=== PATIENT | female | born 1980 | race African-American/Black ===

== ENCOUNTER 2018-02-07 12:21 | Emergency (ER) | payer OTHER ==
[~2018-02-07] VITALS: Ht 172.7 cm; Wt 81.6 kg
[~2018-02-07 12:21] MED LIST: KEFLEX500 M1 PO; PYRIDIUM200 M1 PO
[2018-02-07 13:13] LABS: ABSOLUTE BASOPHIL COUNT 0 /CUMM (0.0-0.2); ABSOLUTE EOSINOPHIL COUNT 0.2 /CUMM (0.0-0.7); ABSOLUTE GRANULOCYTE CT 1.2 /CUMM (1.4-6.5); ABSOLUTE LYMPH COUNT 2.4 /CUMM (1.2-3.4); ABSOLUTE MONOCYTE COUNT 0.4 /CUMM (0.10-0.60); BASOPHIL % 0 % (0.0-2.0); EOSINOPHIL % 4.4 % (0-5); GRANULOCYTE % 28.9 % (42.2-75.2); HEMATOCRIT 34.3 % (37-47); MEAN CORPUSCULAR HGB 22.8 PG (27.0-31.0); MEAN CORPUSCULAR HGB CONC 32.1 G/DL (33.0-37.0); MEAN CORPUSCULAR VOLUME 70.8 FL (81.0-99.0); MEAN PLATELET VOLUME 9.7 FL (7.4-10.4); PLATELET COUNT 204 /CUMM (130-400); RBC DISTRIBUTION WIDTH 20.2 % (11.5-14.5); RED BLOOD CELL CT 4.84 /CUMM (4.20-5.40); WHITE BLOOD CELL COUNT 4.2 /CUMM (4.8-10.8)
--- NOTE | 2018-02-07 14:40 | ED CARDIAC/CP/PALPITATIONS ---
History of Present Illness General Chief Complaint: Lower Extremity Problems Stated Complaint: LT LEG NUMB Source: patient Exam Limitations: no limitations Vital Signs & Intake/Output Vital Signs & Intake/Output Vital Signs Date Time Temp Pulse Resp B/P B/P Pulse O2 O2 Flow FiO2 Mean Ox Delivery Rate 02/07 1842 97.5 55 18 128/59 100 02/07 1534 98 Room Air Room Air 02/07 1232 97.4 73 20 142/75 97 Room Air Allergies Coded Allergies: No Known Allergies (05/03/16) Reconcile Medications No Known Home Medications Triage Note: PT TO ED C/O LEFT LEG NUMBNESS X 30 MINS. STATES IT COMES AND GOES. ALSO C/O CHEST HEAVINESS THAT COMES AND GOES. CURRENTLY DENIES LEG NUMBNESS OR CHEST HEAVINESS. Triage Nurses Notes Reviewed? yes Onset: Gradual Quality/Severity: moderate Location: substernal Radiation: no radiation : No Patient currently breastfeeds: No HPI: Patient is a 38-year-old female with an unremarkable past medical history presents emergency room stating that while at rest in a supine position lying down she stood up and had acute onset of left buttock to behind the knee paresthesia within patient suddenly had chest heaviness that resolved prior to arrival patient states that all symptoms lasted roughly 5 seconds and has completely resolved. Denies any back pain denies any nausea vomiting or hemoptysis leg swelling history DVT or PE Patient is in every day smoker. Denies any recent travel night sweats, or unintentional weight loss (Drew Cordero) Past History Travel History Traveled to [place] past 21 day No Medical History Any Pertinent Medical History? none Neurological: NONE EENT: NONE Cardiovascular: NONE Respiratory: NONE Gastrointestinal: NONE Hepatic: NONE Renal: NONE Musculoskeletal: NONE Psychiatric: NONE Endocrine: NONE Blood Disorders: NONE Cancer(s): NONE Other Medical Hx: UTI Surgical History Surgical History: non-contributory Psychosocial History What is your primary language Jamaican Tobacco Use: Current Not Daily Daily Tobacco Use Amount/Type: =< 4 Cigarettes daily ETOH Use: denies use Illicit Drug Use: denies illicit drug use Family History Hx Contributory? No (Drew Cordero) Review of Systems Review of Systems Constitutional: Reports: no symptoms. EENTM: Reports: no symptoms. Respiratory: Reports: see HPI. Cardiovascular: Reports: see HPI. GI: Reports: no symptoms. Genitourinary: Reports: no symptoms. Musculoskeletal: Reports: no symptoms. Skin: Reports: no symptoms. Neurological/Psychological: Reports: see HPI. Hematologic/Endocrine: Reports: no symptoms. Immunologic/Allergic: Reports: no symptoms. All Other Systems: Reviewed and Negative (Drew Cordero) Physical Exam Physical Exam General Appearance: no apparent distress, alert, comfortable Head: atraumatic Eyes: Bilateral: normal appearance, PERRL. Ears, Nose, Throat: hearing grossly normal Respiratory: normal breath sounds, chest non-tender, no respiratory distress Cardiovascular: regular rate/rhythm Gastrointestinal: normal bowel sounds, soft, non-tender Back: normal inspection, normal range of motion, no vertebral tenderness Extremities: normal inspection, normal capillary refill, normal range of motion, no edema Neurologic/Psych: no motor/sensory deficits Skin: intact, normal color Comments: Bilateral lower extremity myotomes dermatomes DTRs intact no leg swelling Positive straight leg raise on the left AT 70 Core Measures ACS in differential dx? No CVA/TIA Diagnosis No Sepsis Present: No Sepsis Focused Exam Completed? No (Drew Cordero) Progress Differential Diagnosis: AMI, aortic dissection, atrial fibrillation, cholecystitis, CHF/pulm edema, costochondritis, hyperkalemia, hypovolemia, hyperthyroid, hyperventilation, intracranial hemorrhage, musculoskeletal pain, myocarditis, pancreatitis, pericarditis, pneumonia, pneumothorax, PSVT, pulmonary embolism, PUD/GERD, PVCs/PACs, respiratory failure, rib fracture, sepsis, unstable angina, V-fib/V-Tach, WPW syndrome Plan of Care: Orders Procedure Date/time Status Add-on Test (ER Only) 02/07 1858 Active THYROID STIMULATING HORMONE 02/07 1302 Complete THYROXINE 02/07 1302 Complete URINALYSIS 02/07 1235 Complete TROPONIN LEVEL 02/07 1235 Complete MAGNESIUM 02/07 1235 Complete LIPASE 02/07 1235 Complete HUMAN BETA HCG SCREEN 02/07 1235 Complete COMPREHENSIVE METABOLIC PANEL 02/07 1235 Complete CBC WITHOUT DIFFERENTIAL 02/07 1235 Complete EKG 02/07 1235 Active Laboratory Tests 02/07/18 1455: Urinalysis LIGHT H, Urine Color STRAW, Urine Clarity HAZY H, Urine pH 6.0, Ur Specific [place] <= 1.005, Urine Protein NEG, Urine Ketones NEG, Urine Nitrite NEG, Urine Bilirubin NEG, Urine Urobilinogen 0.2, Ur Leukocyte Esterase MOD H, Ur Microscopic SEDIMENT EXAMINED, Urine RBC 3-5, Urine WBC 5-10 H, Ur Epithelial Cells MANY H, Urine Bacteria FEW H, Urine Mucus RARE, Urine Hemoglobin NEG, Urine Glucose NEG 02/07/18 1302: Anion Gap 6, Estimated GFR > 60, BUN/Creatinine Ratio 10.0, Glucose 110 H, Calcium 9.3, Magnesium 1.8, Total Bilirubin 0.4, AST 29, ALT 40, Alkaline Phosphatase 40, Troponin I < 0.01, Total Protein 6.7, Albumin 3.7, Globulin 3.0, Albumin/Globulin Ratio 1.2, Lipase 216, TSH 0.718, Thyroxine (T4) 9.3, Total Beta HCG NEGATIVE, CBC w Diff MAN DIFF ORDERED, RBC 4.84, MCV 70.8 L, MCH 22.8 L, MCHC 32.1 L, RDW 20.2 H, MPV 9.7, Gran % 28.9 L, Lymphocytes % 58.3 H, Monocytes % 8.4, Eosinophils % 4.4, Basophils % 0, Absolute Granulocytes 1.2 L, Absolute Lymphocytes 2.4, Absolute Monocytes 0.4, Absolute Eosinophils 0.2, Absolute Basophils 0, Platelet Estimate ADEQUATE, Hypochromic-Microcytic 2+, Poikilocytosis 2+, Anisocytosis 1+, Ovalocytes 1+ Patient denies any urinary tract symptoms Patient has nontender abdomen Patient is resting comfortably bedside denies any chest pain or shortness of breath PERC 0 Initial EKG and blood work were unremarkable patient has concerns of sciatica or radiculopathy to left lower extremity no concerns of cauda equina syndrome discitis or spinal abscess Chest x-ray does show concerns of deviated trachea in which CT scan was recommended discussed this with patient Patient currently denies any chest pain shortness of breath I had a long extensive conversation with patient where she states that 2 years ago she had ultrasound studies for her enlarged thyroid. 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 Radiology Impression: acute abnormality Initial ED EK bpm normal sinus rhythm Comments: PATIENT: AUSTIN WETZEL PRESENT AGE: 38 PATIENT ACCOUNT NO: [id number] : 78 LOCATION: [facility] ORDERING PHYSICIAN: Drew ASTORGA SERVICE DATE: 02/07/18 EXAM TYPE: CAT - CT CHEST W IV CONTRAST EXAMINATION: CT CHEST WITH CONTRAST CLINICAL INFORMATION: Chest x-ray shows deviated trachea and suspecting mass COMPARISON: Chest x-ray earlier the same day TECHNIQUE: Multidetector volumetric CT imaging of the chest was obtained after the administration of 50 mL of Optiray 320 intravenous contrast without immediate adverse reactions. Axial MIP volume rendering provided. Sagittal and coronal reformatted images were obtained. DLP: 184 mGy-cm FINDINGS: HAND SLITTER: Persistent rightward tracheal deviation. No additional findings LUNGS: 3 mm right upper lobe pulmonary nodule, image 137/488. 4 mm right lower lobe pulmonary nodule, image 171. There is an adjacent smaller 2-3 mm nodule in image 174. 4 mm left lower lobe pulmonary nodule in image 265. MEDIASTINUM: There is a partially imaged heterogeneous enlargement of the left lobe of the thyroid with coarse calcifications. Above the level of the thoracic inlet this measures 6 x 4.5 cm. In the superior mediastinum this measures 5.2 x 3.3 cm. The cephalad extent of the mass is not imaged but measures at least 5.5 cm craniocaudal. This accounts for the rightward tracheal deviation. Small amount of residual thymic soft tissue is seen anteriorly. No hilar lymphadenopathy. PLEURA: There is no pleural effusion. No pleural mass or thickening. AXILLA: No lymphadenopathy. UPPER ABDOMEN: Unremarkable. OSSEOUS STRUCTURES: Unremarkable. IMPRESSION: There is rightward tracheal deviation caused by heterogeneous enlargement of the left lobe of the thyroid with coarse calcifications measuring up to 6 x 4.5 x 5.5 cm. The enlarged left thyroid extends inferiorly into the superior mediastinum. The cephalad extent of the mass is not included in the imaging [id number]. Recommend thyroid ultrasound. Several tiny 2-4 mm pulmonary nodules are present. The thyroid mass is benign, according to the UPDATED 2017 Fleischner Society recommendations, the advised follow-up imaging for incidentally noted solid pulmonary nodules < 6 mm is: LOW RISK PATIENT: No routine follow-up. HIGH RISK PATIENT: Optional CT at 12 months. DICTATED BY: Eddy Garcia MD DATE/TIME DICTATED:02/07/181843 OUTER DIAMETER GRINDER:SAVANNA DATE/TIME TRANSCRIBED:02/07/181843 CONFIDENTIAL, DO NOT COPY WITHOU PATIENT: AUSTIN WETZEL PRESENT AGE: 38 PATIENT ACCOUNT NO: [id number] : 78 LOCATION: [facility] ORDERING PHYSICIAN: Pradeep ASTORGA SERVICE DATE: 02/07/18 EXAM TYPE: RAD - XRY-CHEST XRAY, TWO VIEWS Addendum: A repeat PA view of the chest was subsequently obtained. There is persistent deviation of trachea to the right approximately 2.8 cm from the midline. A CT of the chest with IV contrast is recommended to exclude the presence of a superior mediastinal mass. Addendum Signed by: Garrett Howard MD 02/07/181651 EXAMINATION: CHEST 2 VIEWS CLINICAL INFORMATION: 38-year-old female presenting with chest pressure. COMPARISON: None. TECHNIQUE: PA and lateral radiographs of the chest were obtained. FINDINGS: The patient has a gentle levoscoliosis of the thoracic spine. The right trachea is deviated to the right most likely related to the scoliosis and head rotation. The cardiomediastinal contours are otherwise normal in appearance. There is no evidence of a pneumothorax, vascular congestive changes, focal consolidation, infiltrates, or pleural effusion. The bony thorax is unremarkable. IMPRESSION: 1. Probable rotational related deviation of the trachea to the right. A repeat PA view of the chest will be obtained to exclude a superior mediastinal mass such as a substernal goiter. 2. No active cardiopulmonary process identified. DICTATED BY: Garrett Howard MD DATE/TIME DICTATED:02/07/181627 OUTER DIAMETER GRINDER:SAVANNA DATE/TIME TRANSCRIBED:02/07/181627 (Drew Cordero) Departure Departure Disposition: HOME OR SELF CARE Condition: Stable Clinical Impression Primary Impression: Thyroid enlarged Secondary Impressions: Leg paresthesia, Pulmonary nodule Referrals: Unknown (PCP/Family) Additional Instructions: As discussed tomorrow please follow-up with your primary care doctor for the CT scan results AND THE blood work PROVIDED TO YOU AND obtain a ultrasound of the thyroid BY YOUR DOCTOR, if symptoms worsen or if YOU develop a new concerning symptom return to emergency room Departure Forms: Customer Survey General Discharge Information Prescriptions: Current Visit Scripts No Known Home Medications (Drew Cordero) PA/HAND COMPOSITOR Co-Sign Statement Statement: ED Attending supervision documentation- I saw and evaluated the patient. I have also reviewed all the pertinent lab results and diagnostic results. I agree with the findings and the plan of care as documented in the PA's/HAND COMPOSITOR's documentation. x I have reviewed the ED Record and agree with the PA's/HAND COMPOSITOR's documentation. [] Additions or exceptions (if any) to the PAs/HAND COMPOSITOR's note and plan are summarized below: [] (Peter CANALES,Tyron) Critical Care Note Critical Care Note Critical Care Time: non-applicable (Drew Cordero)
--- NOTE | 2018-02-07 16:39 | RADIOLOGY REPORT ---
EXAMINATION: CHEST 2 VIEWS CLINICAL INFORMATION: 38-year-old female presenting with chest pressure. COMPARISON: None. TECHNIQUE: PA and lateral radiographs of the chest were obtained. FINDINGS: The patient has a gentle levoscoliosis of the thoracic spine. The right trachea is deviated to the right most likely related to the scoliosis and head rotation. The cardiomediastinal contours are otherwise normal in appearance. There is no evidence of a pneumothorax, vascular congestive changes, focal consolidation, infiltrates, or pleural effusion. The bony thorax is unremarkable. IMPRESSION: 1. Probable rotational related deviation of the trachea to the right. A repeat PA view of the chest will be obtained to exclude a superior mediastinal mass such as a substernal goiter. 2. No active cardiopulmonary process identified.
[2018-02-07 18:42] VITALS: BP 128/59
--- NOTE | 2018-02-07 18:56 | CT SCAN REPORT ---
EXAMINATION: CT CHEST WITH CONTRAST CLINICAL INFORMATION: Chest x-ray shows deviated trachea and suspecting mass COMPARISON: Chest x-ray earlier the same day TECHNIQUE: Multidetector volumetric CT imaging of the chest was obtained after the administration of 50 mL of Optiray 320 intravenous contrast without immediate adverse reactions. Axial MIP volume rendering provided. Sagittal and coronal reformatted images were obtained. DLP: 184 mGy-cm FINDINGS: TECHNICAL ADMINISTRATOR: Persistent rightward tracheal deviation. No additional findings LUNGS: 3 mm right upper lobe pulmonary nodule, image 137/488. 4 mm right lower lobe pulmonary nodule, image 171. There is an adjacent smaller 2-3 mm nodule in image 174. 4 mm left lower lobe pulmonary nodule in image 265. MEDIASTINUM: There is a partially imaged heterogeneous enlargement of the left lobe of the thyroid with coarse calcifications. Above the level of the thoracic inlet this measures 6 x 4.5 cm. In the superior mediastinum this measures 5.2 x 3.3 cm. The cephalad extent of the mass is not imaged but measures at least 5.5 cm craniocaudal. This accounts for the rightward tracheal deviation. Small amount of residual thymic soft tissue is seen anteriorly. No hilar lymphadenopathy. PLEURA: There is no pleural effusion. No pleural mass or thickening. AXILLA: No lymphadenopathy. UPPER ABDOMEN: Unremarkable. OSSEOUS STRUCTURES: Unremarkable. IMPRESSION: There is rightward tracheal deviation caused by heterogeneous enlargement of the left lobe of the thyroid with coarse calcifications measuring up to 6 x 4.5 x 5.5 cm. The enlarged left thyroid extends inferiorly into the superior mediastinum. The cephalad extent of the mass is not included in the imaging [id number]. Recommend thyroid ultrasound. Several tiny 2-4 mm pulmonary nodules are present. The thyroid mass is benign, according to the UPDATED 2017 Fleischner Society recommendations, the advised follow-up imaging for incidentally noted solid pulmonary nodules < 6 mm is: LOW RISK PATIENT: No routine follow-up. HIGH RISK PATIENT: Optional CT at 12 months.
[2018-02-08] MEDS ORDERED: IBUPROFEN600 M1 PO (02:23)
[2018-02-08] MEDS ORDERED: AMOXICILLIN500 M3 PO (02:23)
== END 2018-02-07 19:22 ==
LOC: ERH 12:21
PROVIDERS: Physician Assistant Medical
DX: E04.9 Nontoxic goiter, unspecified (principal); R20.2 Paresthesia of skin; R91.1 Solitary pulmonary nodule; R07.9 Chest pain, unspecified
CPT/HCPCS: 71046; 81001; 93005; 93010